=== PATIENT | female | born 1985 | race Two or more races ===

== ENCOUNTER 2017-04-02 22:25 | Emergency (ER) | payer OTHER ==
[2017-04-02 22:49] VITALS: BP 153/80
[2017-04-02] MEDS ORDERED: Diphtheria,Pertussis(Acell),Tetanus Vaccine 0.5 ML SDV IM ONE (23:20)
--- NOTE | 2017-04-02 23:26 | EDM.PDOC ---
ED HPI GENERAL MEDICAL PROBLEM - General Chief Complaint: Laceration Stated Complaint: FISH HOOK / RT INDEX FINGER Time Seen by Provider: 04/02/17 23:21 Source of Information: Reports: Patient History Limitations: Reports: No Limitations - History of Present Illness INITIAL COMMENTS - FREE TEXT/NARRATIVE: pt arrived with a fishook in her rt index finger. She got it in earlier today. Onset: Today Duration: Hour(s): Location: Reports: Upper Extremity, Right Associated Symptoms: Reports: No Other Symptoms Right 2-Index finger Pain Score (Numeric/FACES): 1 - Related Data Allergies Allergy/AdvReac Type Severity Reaction Status Date / Time No Known Allergies Allergy Verified 04/02/17 23:03 Home Meds: Home Meds NK [No Known Home Meds] 04/02/17 [History] Past Medical History - Past Health History Medical/Surgical History: Denies Medical/Surgical History Social & Family History - Tobacco Use Smoking Status *Q: Never Smoker - Caffeine Use Caffeine Use: Reports: Coffee, Energy Drinks - Alcohol Use Days Per Week of Alcohol Use: 2 Number of Drinks Per Day: 3 Total Drinks Per Week: 6 - Recreational Drug Use Recreational Drug Use: Yes Recreational Drug Type: Reports: Marijuana/Hashish ED ROS GENERAL - Review of Systems Review Of Systems: See Below Constitutional: Reports: No Symptoms HEENT: Reports: No Symptoms Respiratory: Reports: No Symptoms Cardiovascular: Reports: No Symptoms Endocrine: Reports: No Symptoms GI/Abdominal: Reports: No Symptoms : Reports: No Symptoms Skin: Reports: Other (pt has a fishook in the rt index finger. ) ED EXAM, SKIN/RASH Exam: See Below Text/Narrative:: pt has a fishook in the rt index finger. Exam Limited By: No Limitations General Appearance: Alert, Anxious Extremities: Other (Pt has a fishook in the rt index finger. She also has some fings on which are quite tight. ) Neurological: Alert, Normal Cognition Course - Vital Signs Last Recorded V/S: Last Vital Signs Temp 36.3 C 04/02/17 23:01 Pulse 71 04/02/17 23:01 Resp 16 04/02/17 23:01 BP 153/80 H 04/02/17 23:01 Pulse Ox 99 04/02/17 23:01 - Orders/Labs/Meds Orders: Active Orders 24 hr Category Date Time Status Vaccines to be Administered [RC] PER UNIT ROUTINE Care 04/02/17 23:20 Ordered Diphth,Pertuss(Acell),Tet Vac [Adacel] Med 04/02/17 23:20 Once 0.5 ml IM .ONCE ONE Medication Orders Diphtheria/Tetanus/Acell Pertussis (Adacel) 0.5 ml IM .ONCE ONE Stop: 04/02/17 23:21 Meds: Medications Generic Name Dose Route Start Last Admin Trade Name Freq PRN Reason Stop Dose Admin Diphtheria/Tetanus/Acell Pertussis 0.5 ml 04/02/17 23:20 Adacel IM 04/02/17 23:21 .ONCE ONE Discontinued Medications Generic Name Dose Route Start Last Admin Trade Name Freq PRN Reason Stop Dose Admin Lidocaine HCl Confirm 04/02/17 23:12 Xylocaine-Mpf 1% Administered 04/02/17 23:13 Dose 5 ml .ROUTE .STK-MED ONE - Re-Assessments/Exams Free Text/Narrative Re-Assessment/Exam: 04/02/17 23:26 The area was clenased and infiltrated with lidocaine. The hook was pushed through and the rosanna cut off and it was removed without difficulty Departure - Departure Time of Disposition: 23:27 Disposition: Home, Self-Care 01 Condition: Fair Clinical Impression: Fish hook injury of finger - Discharge Information Forms: ED Department Discharge Care Plan Goals: soak the hand rtc if problems. - My Orders Last 24 Hours: My Active Orders 04/02/17 23:20 Vaccines to be Administered [RC] PER UNIT ROUTINE Diphth,Pertuss(Acell),Tet Vac [Adacel] 0.5 ml IM .ONCE ONE - Assessment/Plan Last 24 Hours: My Active Orders 04/02/17 23:20 Vaccines to be Administered [RC] PER UNIT ROUTINE Diphth,Pertuss(Acell),Tet Vac [Adacel] 0.5 ml IM .ONCE ONE
[2017-04-02] MEDS ORDERED: Bacitracin Oint 1 GM U/D Packet TOP ONE (23:30)
[2017-04-02] MEDS ORDERED: Bacitracin Oint 1 GM U/D Packet ONE (23:32)
== END 2017-04-03 00:08 | disposition home or self-care (01) ==
LOC: JP.ED 22:25
DX: S60.450A Superficial foreign body of right index finger, initial encounter (principal); Z23 Encounter for immunization; W45.8XXA Other foreign body or object entering through skin, initial encounter
CPT/HCPCS: 90471; 90715; 99283-25